=== PATIENT | male | born 1935 | race Caucasian/White ===

== ENCOUNTER 2020-03-14 08:20 | Day surgery (SDC) | payer OTHER ==
[2020-03-08 18:33] VITALS: BMI 23.7
[2020-03-14] MEDS ORDERED: LIDOCAINE 1%/EPI 1:100000 (20 ML MULTI DOSE VIAL) ONE (10:50)
[2020-03-14] MEDS ORDERED: ERYTHROMYCIN 0.5% OPHTHALMIC OINTMENT 3.5 GM TUBE ONE (10:50)
[2020-03-14] MEDS ORDERED: BUPIVACAINE HCL/PF 0.5% (5MG/ML) 10 ML VIAL ONE (10:50)
[2020-03-14] MEDS ORDERED: TETRACAINE 0.5% OPHTH SOLN 2 ML BOTTLE ONE (10:50)
[2020-03-14] MEDS ORDERED: POVIDONE-IODINE 5% OPHTHALMIC PREP 30 ML SOLUTION ONE (10:50)
[2020-03-14] MEDS ORDERED: GUM MASTIC/STORAX/MSAL/ALCOHOL 1 DRP DROPSBTL MC ONE (13:16)
[2020-03-14] MEDS ORDERED: ONDANSETRON 4 MG/2 ML VIAL IVPUSH PRN (13:37)
[2020-03-14] MEDS ORDERED: oxyCODONE HCL 5 MG TABLET PO PRN (13:37)
[2020-03-14] MEDS ORDERED: LACTATED RINGERS SOLUTION 1,000 ML IV SCH (13:45)
[2020-03-14 15:23] VITALS: BP 109/72; PULSE 69; TEMP 98
--- NOTE | 2020-03-15 00:30 | OP ---
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 PROCEDURES: 1. Exam under anesthesia. 2. Lateral tarsal strip left lower lid. 3. Excision of cystic mass left lateral canthus, biopsied. 4. Release of cicatricial changes in the anterior lamella of the left lower lid. 5. Lateral canthoplasty. 6. Medial conjunctivoplasty with punctal inversion. 7. Cicatricial eversion of contracted margin, left lower lid. 8. Full thickness skin graft from the left posterior auricular region to the left lower lid. 9. Hayes suture. SURGEON: Sabiha Samuel MD. ANESTHESIA: LMA. COMPLICATIONS: None. ESTIMATED BLOOD LOSS: 10-20 mL. OPERATIVE REPORT: Patient brought to the operating room, placed on the operating room table. Vital signs were monitored by Anesthesia. Tetracaine was placed in both eyes. He was placed under LMA anesthesia. Timeout was performed. Line was marked subciliary and lateral canthus, and then a 50/50 mixture of 2% Xylocaine with 1:100,000 epinephrine with 1.5% Marcaine was injected throughout the left lower lid, left lower canthus, down to periosteum pretragal region and helix of the left ear. Patient was prepped and draped in sterile fashion exposing both eyes and the left ear. The right eye was taped and closed with Steri-Strips. It should be noted that the anesthesia did not balloon up easily throughout the left lateral portion of the left lower lid due to prior surgery and scarring, and significant scarring was encountered during surgery. At this point, a 4-0 silk traction suture was passed through the lateral lid margin. A traction suture lateral canthal incision was made in the left canthus down to periosteum. There was an enormous amount of scar tissue present in this area. The scar tissue was dissected out and removed. The inferior kaila of the lateral canthal tendon was released from the oval rim, and again massive scar tissue and cicatricial tissue overlying lateral orbital rim with multiple sutures and evidence of prior surgery. This was excised and removed. The lateral canthus was then overlapped at the lateral orbital rim, marked with a sterile marking pen, divided to anterior and posterior lamella. Anterior lamella was excised. Posterior lamella was denuded both posteriorly and superiorly, and it was reattached to the orbital rim with double-arm 5-0 Prolene at the appropriate position, but the Prolene was not tied at this point. A subciliary incision was made with 15-blade, and skin flap was dissected down to the orbial rim. Lateral emulating scar tissue was released, allowing this lid to be manually reverted although the margin itself had been contract with not much distance between the lash line and the conjunctival surface. The lid was placed on the stretch, and the Prolene was tightened with hemostat, and a template was used to determine the amount of skin that was necessary. This was marked on a template. The helix of left ear was sutured to the pretragal region with two 4-0 silk sutures, and the template was placed on the postauricular reflection. The graft size was marked, and subcutaneous injection 2% Xylocaine 1:100,000 epinephrine was performed for 3 to 4 mL. The graft was then harvested with a perimeter incision with a 15-blade. Hemostasis with a cautery needle, and closed with a combination of running and interrupted 3-0 chromic sutures, releasing the helix sutures at this point. The graft was then thinned of all subcutaneous tissue and pie crusted with a number 11-blade, and with the auricular tissue oriented superiorly toward the thinner eyelid skin was placed into the defect with the eyelid on the stretch, and it was sutured into the host bed with a combination of running and interrupted 5-0 and 6-0 plain suture with plastic technique reconstituting the anterior lamella skin to this eyelid which was now better positioned. The lateral canthal angle was reformed with a 5-0 chromic from the chacon line of the upper lower lid in buried fashion. Lid was everted and the sub-punctal diameter of conjunctiva retracted and was excised, and this was closed with a 4-0 chromic running inferior and retracted superior towards the conjunctiva and ascending through the full-thickness eyelid inferiorly and exiting onto the inferior portion of the skin graft, quilting that skin graft and also inverting the nasal portion of the eyelid. Additional quick everting sutures were placed on the deep fornix to the superior graft, again quilting the skin graft into position but also rotating the margins slightly to compensate for its marked thinning and upward deviation of the eyelashes. So the suture correction was completed, the conjunctivoplasty and punctal inversion was created, a full-thickness skin graft was placed, the lateral canthus was reformed, the cystic mass lateral to the lateral canthus was excised and biopsied as best as could be excised, and as it was encased in scar tissue, and at this point the traction stitch was removed. The lateral canthus was reconstructed with buried 5-0 Vicryl sutures and interrupted and running 5-0 plain sutures, recreating the skin and muscle lateral to the lateral canthus where significant scarring existed. Traction sutures were removed. Double-arm 4-0 silk was passed around a number 8-Mohawk red rubber catheter then passed through the superior skin graft to the margin and it was secured to the forehead with Mastisol and Steri-Strips after erythromycin was placed in the eye. Erythromycin was then placed over the skin graft, a strip of Telfa and a dental roll were placed over the skin graft and secured there with a 4-0 silk suture to the bolster in the left lower lid and through the skin below the dental roll, and then this was also secured with the eye closed with strip of Telva and eye patch and paper tape with Mastisol to the forehead and cheek, placing gentle firm pressure without excess pressure onto the skin graft. Again, the 4-0 silk suture was secured to the forehead with Mastisol and Steri-Strips prior to placing the suture. Therefore we had the graft on the stretch and we had gentle pressure dressing over the left eye. Xeroform and gauze were placed behind the ear and secured with tape, and the patient was awakened from anesthesia and taken to the recovery room in stable condition. SABIHA SAMUEL M.D. [id number]
--- NOTE | 2020-03-16 15:31 | PATH ---
Surgical Pathology Report Patient Name: SABIHA AGUIRRE Med. Rec. #: [id number] /Age/Gender: 1935 (Age: 84) / M Account: [id number] Location: [facility] Taken: 03/14/2020 Received: 03/14/2020 Reported: 03/16/2020 Physicians: Sabiha Jensen Specimen(s) Received LEFT EYELID CYST Clinical History Ectropion left lower eyelid Final Diagnosis EYELID, LEFT, CYST, EXCISION: EYELID TISSUE SHOWING DENSE FIBROUS CYST WALL WITH MARKED ACUTE AND CHRONIC INFLAMMATION AND FOREIGN BODY GIANT CELL REACTION. Electronically Signed Audrey Vásquez M.D. Gross Description Received in formalin labeled "left eyelid cyst," are 2 henao, irregular, unoriented portions of soft tissue averaging 0.7 cm in greatest dimension. The specimens are submitted in toto in one cassette. 03/15/2020 [facility]/15/2020
== END 2020-03-14 15:23 | disposition home or self-care (01) ==
LOC: FASU 08:20
PROVIDERS: ATTEND Ophthalmology
PROC: 0HB3XZZ Excision of Left Ear Skin, External Approach (ICD-10-PCS; 2020-03-14)
PROC: 08SR0ZZ Reposition Left Lower Eyelid, Open Approach (ICD-10-PCS; 2020-03-14)
PROC: 08BP0ZZ Excision of Left Upper Eyelid, Open Approach (ICD-10-PCS; 2020-03-14)
PROC: 08QRXZZ Repair Left Lower Eyelid, External Approach (ICD-10-PCS; 2020-03-14)
PROC: 08QPXZZ Repair Left Upper Eyelid, External Approach (ICD-10-PCS; 2020-03-14)
PROC: 08RR07Z Replacement of Left Lower Eyelid with Autologous Tissue Substitute, Open Approach (ICD-10-PCS; principal; 2020-03-14 11:32)
DX: H02.115 Cicatricial ectropion of left lower eyelid (principal)
CPT/HCPCS: 88305-TC; 94760